=== PATIENT | male | born 1990 | race Caucasian/White ===

== ENCOUNTER 2020-03-09 16:20 | Emergency (ER) | payer MEDICAID ==
[~2020-03-09] VITALS: Ht 177.8 cm; Wt 65.0 kg
[~2020-03-09 16:20] MED LIST: ALPR-624 PO; B CO1TAB7 PO; HYDR-4353 PO; MULT-1085 PO; ZOLP10TA5 PO
[2020-03-09 16:26] VITALS: BP 91/44
[2020-03-09] MEDS ORDERED: azithromycin 250mg tablet PO ONE (17:20)
[2020-03-09] MEDS ORDERED: CefTRIAXone 250MG IM Kit w/LIDOcaine IM ONE (17:20)
--- NOTE | 2020-03-09 17:31 | NUR ---
NOTIFIED BERENICE NOTIFIED. SHE REQUEST WE CALL PT. AND SEE IF HE WILL COME BACK DUE TO LOW BP.
--- NOTE | 2020-03-09 17:41 | NUR ---
I CALLED THE PHONE NUMBER LISTED [phone]. AN ANGRY MAN SAID HE WAS NOT CONNOR AND HE STATED" QUIT CALLING ME". I ASKED HIM IF HE KNOW CONNOR AND HE SAID "NO" AND HUNG UP. I THEN CALLED HIS CONTACT NUMBER [phone] THAT IS NIC NICE HIS BROTHER. THIS NUMBER IS NO LONGER IN SERVICE AND CAN NOT RECIEVE CALLS AT THIS TIME. DR. HERNANDEZ NOTIFIED FAILURE TO GET A HOLD OF THE PT.
== END 2020-03-09 17:57 | disposition left against medical advice (07) ==
LOC: ER 16:20
DX: N39.0 Urinary tract infection, site not specified (principal); Z53.21 Procedure and treatment not carried out due to patient leaving prior to being seen by health care provider

== ENCOUNTER 2024-01-07 10:24 | Emergency (ER) | payer MEDICARE, MEDICAID ==
[~2024-01-07] VITALS: Ht 180.3 cm; Wt 61.4 kg
[2024-01-07 11:02] LABS: BASOPHILS # (AUTO) 0.1 X10'3 (0-0.2); BASOPHILS % (AUTO) 0.7 % (0-1); EOSINOPHILS # (AUTO) 0.2 X10'3 (0-0.9); EOSINOPHILS % (AUTO) 2.4 % (0-6); HEMATOCRIT 43.9 % (42.0-52.0); HEMOGLOBIN 14.8 g/dl (14.0-17.9); LYMPHOCYTES # (AUTO) 2.4 X10'3 (1.1-4.8); LYMPHOCYTES % (AUTO) 31.8 % (21-51); MEAN CORPUSCULAR HEMOGLOBIN 31.2 PG (27.0-31.0); MEAN CORPUSCULAR HGB CONC 33.7 g/dL (33.0-36.5); MEAN CORPUSCULAR VOLUME 92.5 FL (78-98); MEAN PLATELET VOLUME 7.8 FL (7.4-10.4); MONOCYTES # (AUTO) 0.7 X10'3 (0-0.9); MONOCYTES % (AUTO) 9.2 % (2-12); NEUTROPHILS # (AUTO) 4.2 X10'3 (1.8-7.7); NEUTROPHILS % (AUTO) 55.9 % (42-75); PLATELET COUNT 292 X10'3 (140-440); RED BLOOD COUNT 4.75 X10'6 (4.70-6.10); RED CELL DISTRIBUTION WIDTH 13.2 % (11.5-14.5); WHITE BLOOD COUNT 7.4 X10'3 (4.5-11.0)
[2024-01-07 11:21] LABS: ALANINE AMINOTRANSFERASE 23 U/L (12-78); ALBUMIN 3.7 G/DL (3.4-5.0); ALKALINE PHOSPHATASE 74 IU/L (46-116); ANION GAP 4 (8-16); ASPARTATE AMINO TRANSFERASE 13 U/L (10-37); BILIRUBIN,TOTAL 0.4 MG/DL (0.1-1.0); BLOOD UREA NITROGEN 11 MG/DL (7-18); BUN/CREATININE RATIO 12.5 (10.0-20.0); CALCIUM 9.3 MG/DL (8.5-10.1); CHLORIDE 97 MMOL/L (99-107); CREATININE 0.88 MG/DL (0.60-1.10); GLUCOSE 85 MG/DL (70-104); LIPASE 38 U/L (16-77); SODIUM 131 MMOL/L (135-145); TOTAL CARBON DIOXIDE 29.9 MMOL/L (24-32); TOTAL PROTEIN 7.4 G/DL (6.4-8.2); eCRCL 103 ML/MIN; eGFR > 90 ML/MIN
[2024-01-07] MEDS: ondansetron/PF 4mg/2ml inj IV ONE (11:39)
[2024-01-07] MEDS: ketorolac trometh. 30mg/ml inj. IV ONE (11:40)
[2024-01-07] MEDS: normal saline 1000ml 1,000 ML IV ONE (11:40)
[2024-01-07 12:28] LABS: BILIRUBIN,URINE NEGATIVE (Neg); CLARITY,URINE CLEAR (Clear); COLOR,URINE STRAW (Yellow); GLUCOSE, URINE NEGATIVE (Neg); KETONES,URINE NEGATIVE (Neg); LEUKOCYTE ESTERASE ,URINE LARGE (Neg); NITRITES, URINE POSITIVE (Neg); OCCULT BLOOD,URINE NEGATIVE (Neg); PH,URINE 8.5 (4.8-8.0); PROTEIN,URINE NEGATIVE (Neg); UROBILINOGEN,URINE 0.2 E.U/dL (0.2-1.0)
[2024-01-07 12:35] LABS: UA COLLECTION TYPE VOIDED
[2024-01-07 12:37] LABS: RBC,URINE NONE SEEN /HPF (0-2)
[2024-01-07 12:38] LABS: BACTERIA,URINE 1+ /HPF (Neg); MUCUS STRANDS FEW /LPF (Neg); SQUAMOUS EPITHELIAL CELL,UR FEW /LPF (FEW); WBC CLUMPS,URINE FEW /HPF (NEGATIVE)
[2024-01-07] MEDS: CefTRIAXone 2gm/D5W 50ml BAG 50 ML IV ONE (13:26)
[2024-01-07] MEDS ORDERED: CEPH-585 PO (14:21)
[2024-01-07] MEDS: LIDOcaine 2% Viscous 15ml cup MM PRN (15:01)
[2024-01-07] MEDS: mag hydrox/Alum hydrox/simeth 30ml oral suspension PO ONE (15:01)
[2024-01-07] MEDS: LORazepam 2 mg/ml vial IV ONE (15:02)
[2024-01-07 15:20] VITALS: TEMP 98.6
[2024-01-07 17:20] VITALS: BP 100/69; PULSE 78; RESP 16; O2SAT 98
== END 2024-01-07 17:21 | disposition home or self-care (01) ==
LOC: ER 10:25
DX: R10.84 Generalized abdominal pain (principal); N39.0 Urinary tract infection, site not specified; F41.9 Anxiety disorder, unspecified; R11.0 Nausea; F12.90 Cannabis use, unspecified, uncomplicated; Z88.8 Allergy status to other drugs, medicaments and biological substances; Z79.2 Long term (current) use of antibiotics; Z79.899 Other long term (current) drug therapy; Z98.890 Other specified postprocedural states; Z72.89 Other problems related to lifestyle
CPT/HCPCS: 36415; 80053; 81001; 83690; 85025; 87077; 87088; 87186; 93005; 96361; 96365; 96375; 99285; A6212; A6258; J0696; J1885; J2060; J2405; J7030